=== PATIENT | female | born 1965 | race Caucasian/White ===

== ENCOUNTER 2019-01-11 10:31 | Day surgery (SDC) | payer OTHER ==
[~2019-01-11] VITALS: Ht 165.1 cm; Wt 82.7 kg
[~2019-01-11 10:31] MED LIST: GLYCOPYRROLATE INJ 0.2 MG/ML 2 ML VIAL As Ordered ONE; HYDROmorphone HCL 2 MG/ML 1ML VIAL (J1170) As Ordered ONE; LIDOCAINE PRES-FREE 2% 10ML AMP As Ordered ONE; MIDAZOLAM INJ 2 MG/2 ML VIAL (J2250) As Ordered ONE; NEOSTIGMINE 10 MG/10 ML VIAL (J2710) As Ordered ONE; ONDANSETRON 4MG/2ML VIAL (J2405) As Ordered ONE; PROPOFOL 200 MG/20 ML VIAL As Ordered ONE; ROCURONIUM BROMIDE 50 MG/5 ML VIAL As Ordered ONE; dexameTHASONE 4 MG/ML 1ML VIAL (J1100) As Ordered ONE; fentaNYL 100 MCG/2 ML INJECTION (J3010) As Ordered ONE
[2019-01-11 10:59] LABS: HEMATOCRIT 44.5 % (36.0-47.0); HEMOGLOBIN 14.8 g/dl (12.0-15.5); MEAN CORPUSCULAR HEMOGLOBIN 30.9 pg (27.0-33.0); MEAN CORPUSCULAR HGB CONC 33.3 g/dl (32.0-36.5); MEAN CORPUSCULAR VOLUME 92.9 fl (80.0-96.0); PLATELET COUNT, AUTOMATED 267 10^3/uL (150-450); RED BLOOD COUNT 4.79 10^6/uL (4.00-5.40); WHITE BLOOD COUNT 11.3 10^3/uL (4.0-10.0)
[2019-01-11] MEDS ORDERED: LR 1,000 ML IV ONE (11:00)
[2019-01-11 11:22] LABS: BLOOD UREA NITROGEN 9 MG/DL (7-18); CALCIUM LEVEL 8.9 MG/DL (8.5-10.1); CARBON DIOXIDE LEVEL 29 MEQ/L (21-32); CHLORIDE LEVEL 106 MEQ/L (98-107); CREATININE FOR GFR 0.95 MG/DL (0.55-1.30); GLOMERULAR FILTRATION RATE > 60.0 (>51); GLUCOSE, FASTING 94 MG/DL (70-100); SODIUM LEVEL 140 MEQ/L (136-145)
[2019-01-11] MEDS ORDERED: VASOPRESSIN INJ 20 UNITS/ML VIAL As Ordered ONE (15:09)
[2019-01-11] MEDS ORDERED: ACETAMINOPHEN 650 MG SUPP As Ordered ONE (15:50)
[2019-01-11] MEDS ORDERED: METOPROLOL 5 MG/5 ML VIAL As Ordered ONE (16:16)
[2019-01-11] MEDS ORDERED: fentaNYL 100 MCG/2 ML INJECTION (J3010) As Ordered ONE (17:27)
[2019-01-11] MEDS: fentaNYL 100 MCG/2 ML INJECTION (J3010) IV PRN ×4 (17:28→17:50)
[2019-01-11] MEDS ORDERED: HYDROMORPHONE HCL 0.5 MG/ 0.5 ML SYRINGE (J1170 PER 1) IV PRN (17:30)
[2019-01-11] MEDS ORDERED: PERCOCET 5MG/325MG TAB PO PRN ×2 (17:30→17:45)
[2019-01-11] MEDS: LR 1,000 ML IV SCH (17:45)
[2019-01-11 18:10] VITALS: BP 138/78
[2019-01-11] MEDS: SIMETHICONE 80 MG CHEW TAB PO SCH (18:31)
[2019-01-11] MEDS: IBUPROFEN 800 MG TAB PO SCH (18:32)
[2019-01-11 18:40] VITALS: BP 143/67
[2019-01-11 19:40] VITALS: BP 139/65
[2019-01-11 20:40] VITALS: BP 143/69
[2019-01-11 21:40] VITALS: BP 164/78
[2019-01-11 22:40] VITALS: BP 156/73
[2019-01-12] VITALS: BP 138/67
[2019-01-12] MEDS: SIMETHICONE 80 MG CHEW TAB PO SCH ×2 (00:22→06:00)
[2019-01-12] MEDS: IBUPROFEN 800 MG TAB PO SCH ×2 (00:23→07:01)
[2019-01-12] MEDS: LR 1,000 ML IV SCH (01:45)
[2019-01-12 04:00] VITALS: BP 127/57
[2019-01-12] MEDS ORDERED: IBUP80TA PO (08:23)
[2019-01-12] MEDS ORDERED: PERCOCET PO (08:23)
--- NOTE | 2019-01-12 18:15 | RO ---
DATE OF PROCEDURE: 01/11/2019 Cynthia is a 54-year-old female with complaints of uterovaginal prolapse. After counseling in the office, a decision was made to proceed with a total vaginal hysterectomy, possible removal of both tubes and ovaries and possible vault suspension. PREOPERATIVE DIAGNOSES: 1. Complete uterine prolapse. 2. Pelvic pressure. 3. Cervical polyp. POSTOPERATIVE DIAGNOSES: 1. Complete uterine prolapse. 2. Pelvic pressure. 3. Cervical polyp. PROCEDURES: 1. Total vaginal hysterectomy. 2. Bilateral salpingo-oophorectomy. SURGEON: Dr. Anthony Lazar SHOPPER'S AIDE: ANESTHESIA: General. COMPLICATIONS: None. ESTIMATED BLOOD LOSS: Less than 50 mL. SPECIMENS SENT TO THE LAB: The uterus, cervix and a polyp as well as both ovaries and tube. DESCRIPTION OF PROCEDURE: After obtaining informed consent, the patient was taken to the operating room where general anesthetic was found to be adequate. She was then draped and prepped in the usual sterile fashion in the dorsal lithotomy position. At this point, a Delaney catheter was placed in the bladder for drainage. We then put a weighted speculum in the posterior fornix of the vagina. Using two [facility] clamps, the anterior and posterior aspect of the cervix was then grasped. A circumferential incision was made with the Bovie, and the anterior and posterior cul-de-sac was then entered. At this point, a Genet clamp was placed at the level of the uterosacral ligament on each side. This was cut and suture ligated using #0 Vicryl suture. Serial bites were then taken to include the uterine artery, the cardinal ligament, and the utero-ovarian ligament. At this point, these were clamped, cut and suture ligated using #0 Vicryl suture. At this point, the uterus and cervix was removed. We then focused our attention to the ovaries. Using a Samm, the ovaries and tubes were grasped, the infundibulopelvic ligament was clamped with a Genet clamp and the ovary and tube was removed. This was suture ligated using an #0 Vicryl suture. The opposite side was done in a similar fashion after removing both ovaries. We then turned our attention to both uterosacral ligaments, which were imbricated to the posterior cul-de-sac, thereby obliterating the posterior cul-de-sac. Turned to the peritoneum which was closed in a pursestring fashion using #2-0 Vicryl, and the vaginal cuff was then closed using the preplaced sutures at the level of the uterosacral ligament at two separate segments. A piece of Surgicel was oversewn in the vaginal cuff for good hemostasis. Excellent hemostasis noted. All instruments removed. The urine was clear. No evidence of any bladder injury seen. The patient was then transferred to recovery room in stable condition. REBEKA
== END 2019-01-12 09:45 | disposition home or self-care (01) ==
LOC: M SDC 10:31 → M PED 15:30 → M SDC 01-12 09:45
PROVIDERS: ATTEND Obstetrics & Gynecology
DX: N81.3 Complete uterovaginal prolapse (principal); R10.2 Pelvic and perineal pain; N84.0 Polyp of corpus uteri; Z72.0 Tobacco use; Z98.51 Tubal ligation status
CPT/HCPCS: 36415; 58262; 80048; 85027; 86850; 88307; J1100; J1170; J2250; J2405; J2710; J3010

== ENCOUNTER 2025-09-24 07:21 | Emergency (ER) | payer OTHER, SELFPAY ==
[~2025-09-24] VITALS: Ht 165.1 cm; Wt 88.1 kg
[~2025-09-24 07:21] MED LIST changes: -GLYCOPYRROLATE INJ 0.2 MG/ML 2 ML VIAL As Ordered ONE; -HYDROmorphone HCL 2 MG/ML 1ML VIAL (J1170) As Ordered ONE; +IBUP80TA PO; -LIDOCAINE PRES-FREE 2% 10ML AMP As Ordered ONE; -MIDAZOLAM INJ 2 MG/2 ML VIAL (J2250) As Ordered ONE; -NEOSTIGMINE 10 MG/10 ML VIAL (J2710) As Ordered ONE; -ONDANSETRON 4MG/2ML VIAL (J2405) As Ordered ONE; +PERCOCET PO; -PROPOFOL 200 MG/20 ML VIAL As Ordered ONE; -ROCURONIUM BROMIDE 50 MG/5 ML VIAL As Ordered ONE; -dexameTHASONE 4 MG/ML 1ML VIAL (J1100) As Ordered ONE; -fentaNYL 100 MCG/2 ML INJECTION (J3010) As Ordered ONE
[2025-09-24] MEDS: ASPIRIN 81 MG CHEWABLE TABLET PO ONE (07:43)
[2025-09-24] MEDS: MORPHINE 4 MG/ML 1 ML VIAL IV PRN (07:43)
[2025-09-24] MEDS: TENECTEPLASE 50 MG/10 ML VIAL IV STA (07:47)
[2025-09-24 07:49] LABS: BASO # 0.1 10^3/uL (0.0-0.2); BASO % 0.5 % (0.0-1.0); EOS # 0.1 10^3/uL (0.0-0.5); EOS % 0.4 % (0.0-3.0); LYMPH # 3.0 10^3/uL (1.5-5.0); LYMPH % 17.5 % (24.0-44.0); MONO # 1.1 10^3/uL (0.0-0.8); MONO % 6.3 % (2.0-8.0); NEUTROPHILS # 13.0 10^3/uL (1.5-8.5); NEUTROPHILS % 74.9 % (36.0-66.0); PLATELET COUNT, AUTOMATED 330 10^3/uL (150-450)
[2025-09-24] MEDS: HEPARIN DRIP 25,000 UNITS in IV 1 EA IV SCH (07:49)
[2025-09-24] MEDS: HEPARIN SOD 5000 UNITS/ML 1 ML VIAL/SYRINGE IV ONE (07:50)
[2025-09-24 08:06] VITALS: BP 120/49; TEMP 97.4; O2SAT 98
[2025-09-24 08:17] LABS: INR 0.93
[2025-09-24 08:22] LABS: CALCIUM LEVEL 9.4 MG/DL (8.5-10.1); CARBON DIOXIDE LEVEL 22.0 MMOL/L (20-31); CHLORIDE LEVEL 105.0 MMOL/L (98-107); CK-MB VALUE MASS 6.2 NG/ML (<3.6); CPK CREATINE PHOSPHOKINASE 131.0 U/L (34-145); CREATININE FOR GFR 0.88 MG/DL (0.55-1.30); GLOMERULAR FILTRATION RATE 76.1 (>51); MAGNESIUM LEVEL 2.0 MG/DL (1.8-2.4); MB/CK RELATIVE INDEX 4.73 (< OR =4); POTASSIUM SERUM 3.5 MMOL/L (3.5-5.1); SODIUM LEVEL 137.0 MMOL/L (136-145)
== END 2025-09-24 08:07 | disposition short-term general hospital (02) ==
LOC: M ED 07:21
DX: I21.3 ST elevation (STEMI) myocardial infarction of unspecified site (principal); K21.9 Gastro-esophageal reflux disease without esophagitis; F17.210 Nicotine dependence, cigarettes, uncomplicated; Z91.018 Allergy to other foods; Z79.1 Long term (current) use of non-steroidal anti-inflammatories (NSAID); Z79.899 Other long term (current) drug therapy
CPT/HCPCS: 71045; 80048; 82550; 82553; 83735; 83880; 84484; 85025; 85610; 85730; 93005; 93041; 94760; 96374; 96375; 99285; J3101